=== PATIENT | male | born 1955 | race Caucasian/White ===

== ENCOUNTER 2021-09-07 10:46 | Day surgery (SDC) | payer MEDICARE ==
[2021-09-06 12:07] VITALS: BMI 28.8
[2021-09-07] MEDS ORDERED: AFRIN NASAL MIST 15 ML BOT ONE ×3 (11:29→14:42)
[2021-09-07 12:14] LABS: Hemoglobin 13.7 g/dL (14.0-18.0)
[2021-09-07] MEDS ORDERED: fentaNYL Citrate/PF 100 MCG/2 ML SYRINGE ONE ×3 (12:18→14:50)
[2021-09-07] MEDS ORDERED: Bacitracin Zinc Ointment 30 gm TUBE ONE (12:20)
[2021-09-07] MEDS ORDERED: Lidocaine 1% w/Epinephrine 1:100K 20 ML VIAL ONE ×2 (12:20→13:45)
[2021-09-07 12:27] LABS: Anion Gap 12 mmol/L (10-20); BUN (Urea Nitrogen) 25 mg/dL (8.4-25.7); Calc. Creatinine Clearance 80 mL/min (70-130); Calcium 9.1 mg/dL (7.8-10.44); Carbon Dioxide 28 mmol/L (23-31); Chloride 102 mmol/L (98-107); Glucose 91 mg/dL (80-115); Potassium 3.9 mmol/L (3.5-5.1); Sodium 138 mmol/L (136-145)
[2021-09-07] MEDS ORDERED: Fentanyl 250 MCG/5 ML VIAL ONE (14:08)
[2021-09-07] MEDS ORDERED: hydrALAZINE 20 MG/ML VIAL ONE (14:21)
[2021-09-07] MEDS ORDERED: Acetaminophen 325 MG TAB ONE (14:39)
[2021-09-07] MEDS ORDERED: Hydrocodone-Acetamin 15 ML UDCUP ONE (15:39)
== END 2021-09-07 16:45 | disposition home or self-care (01) ==
LOC: SDC 10:46
PROVIDERS: ATTEND Otolaryngology Plastic Surgery within the Head & Neck
PROC: 8E09XBZ Computer Assisted Procedure of Head and Neck Region (ICD-10-PCS; principal; 2021-09-07)
PROC: 09BT8ZZ Excision of Left Frontal Sinus, Via Natural or Artificial Opening Endoscopic (ICD-10-PCS; 2021-09-07)
PROC: 09BS8ZZ Excision of Right Frontal Sinus, Via Natural or Artificial Opening Endoscopic (ICD-10-PCS; 2021-09-07)
PROC: 09BX8ZZ Excision of Left Sphenoid Sinus, Via Natural or Artificial Opening Endoscopic (ICD-10-PCS; 2021-09-07)
PROC: 09BW8ZZ Excision of Right Sphenoid Sinus, Via Natural or Artificial Opening Endoscopic (ICD-10-PCS; 2021-09-07)
PROC: 09BR8ZZ Excision of Left Maxillary Sinus, Via Natural or Artificial Opening Endoscopic (ICD-10-PCS; 2021-09-07)
PROC: 09BQ8ZZ Excision of Right Maxillary Sinus, Via Natural or Artificial Opening Endoscopic (ICD-10-PCS; 2021-09-07)
PROC: 09TV8ZZ Resection of Left Ethmoid Sinus, Via Natural or Artificial Opening Endoscopic (ICD-10-PCS; 2021-09-07)
PROC: 09TU8ZZ Resection of Right Ethmoid Sinus, Via Natural or Artificial Opening Endoscopic (ICD-10-PCS; 2021-09-07)
PROC: 09SM0ZZ Reposition Nasal Septum, Open Approach (ICD-10-PCS; 2021-09-07)
PROC: 095L7ZZ Destruction of Nasal Turbinate, Via Natural or Artificial Opening (ICD-10-PCS; 2021-09-07)
DX: J30.89 Other allergic rhinitis (principal); B48.8 Other specified mycoses; J32.9 Chronic sinusitis, unspecified; J33.8 Other polyp of sinus; J34.2 Deviated nasal septum; J34.3 Hypertrophy of nasal turbinates; J34.89 Other specified disorders of nose and nasal sinuses; I10 Essential (primary) hypertension; E78.5 Hyperlipidemia, unspecified; Z79.899 Other long term (current) drug therapy
CPT/HCPCS: 80048; 85014; 85018; 93005; 93010; C2625; J0360; J3010